=== PATIENT | female | born 2000 | race Caucasian/White ===

== ENCOUNTER 2022-12-24 17:02 | Emergency (ER) | payer OTHER ==
[2022-12-24] MEDS ORDERED: ACETAMINOPHEN 325 MG TABLET (FP) PO ONE (17:32)
[2022-12-24] MEDS ORDERED: ACETAMINOPHEN 325 MG TABLET (FP) ONE (17:47)
[2022-12-24 17:48] VITALS: BP 116/81; PULSE 90; RESP 16; TEMP 99.5; BMI 19.2
[2022-12-24] MEDS ORDERED: LIDOCAINE 5% TOPICAL PATCH TP ONE (17:53)
[2022-12-24] MEDS ORDERED: LIDOCAINE 5% TOPICAL PATCH ONE (17:57)
[2022-12-24] MEDS ORDERED: LIDOCAINE PATCH REMOVAL MC SCH (22:00)
== END 2022-12-24 20:31 | disposition home or self-care (01) ==
LOC: FER 17:02
DX: M54.2 Cervicalgia (principal); M54.6 Pain in thoracic spine; V49.40XA Driver injured in collision with unspecified motor vehicles in traffic accident, initial encounter; Y93.I9 Activity, other involving external motion
CPT/HCPCS: 70450-TC; 72070-TC-FY; 72125-TC; 81025; 99284-25